=== PATIENT | male | born 1980 | race Two or more races ===

== ENCOUNTER 2017-11-09 23:30 | Emergency (ER) | payer OTHER ==
[2017-11-09 23:52] VITALS: PULSE 74; TEMP 98.2; BMI 30.1
[2017-11-09 23:53] VITALS: BP 137/82
[2017-11-10] MEDS ORDERED: IBUPROFEN 400 MG TABLET (FP) PO ONE ×2 (01:04→01:38)
--- NOTE | 2017-11-10 01:04 | PDOC ---
History of Present Illness - General History Source: Patient, Old Records Exam Limitations: No Limitations - History of Present Illness Initial Comments: 11/10/17 01:16 The patient is a 37 year old male with no significant past medical history who presents to the ED today with left sided pain since yesterday. The patient states that he tackled while playing football and landed on his right side. The patient states that his pain is mostly concentrated just inferiorly to his axilla. He denies attempting to treat his pain at home. <Mauro Parks - Last Filed: 11/10/17 01:17> - General History Source: Patient <[email or web address] rowe - Last Filed: 11/10/17 02:16> - General Chief Complaint: Pain Stated Complaint: PAIN Time Seen by Provider: 11/10/17 01:01 Past History <Mauro Parks - Last Filed: 11/10/17 01:17> - Surgical History Abdominal Surgery: Yes (HERNIA) - Suicide/Smoking/Psychosocial Hx Smoking History: Never smoked Have you smoked in the past 12 months: No Information on smoking cessation initiated: No Hx Alcohol Use: No Drug/Substance Use Hx: No Substance Use Type: None <Dashawn Eli - Last Filed: 11/10/17 02:16> - Past Medical History Allergies/Adverse Reactions: Allergies Allergy/AdvReac Type Severity Reaction Status Date / Time No Known Allergies Allergy Verified 06/30/16 12:52 Home Medications: Ambulatory Orders Ibuprofen 800 mg PO TID #30 tablet 11/10/17 Methocarbamol [Robaxin -] 500 mg PO TID #30 tablet 11/10/17 Review of Systems - Review of Systems Able to Perform ROS?: Yes Comments:: 11/10/17 01:16 CONSTITUTIONAL: Absent: fever, no chills, no fatigue EYES: Absent: visual changes ENT: Absent: ear pain, no sore throat CARDIOVASCULAR: Absent: chest pain, no palpitations RESPIRATORY: Absent: cough, no SOB GI: Absent: abdominal pain, no nausea, no vomiting, no constipation, no diarrhea GENITOURINARY: Absent: dysuria, no frequency, no hematuria MUSCULOSKELETAL: (+) Left axilla pain Absent: back pain, no arthralgia, no myalgia SKIN: Absent: rash <Mauro Parks - Last Filed: 11/10/17 01:17> *Physical Exam - Vital Signs Last Vital Signs Temp Pulse Resp BP Pulse Ox 98.2 F 74 18 137/82 98 11/09/17 23:50 11/09/17 23:50 11/09/17 23:50 11/09/17 23:50 11/09/17 23:50 - Physical Exam Comments: 11/10/17 01:16 GENERAL: Well-appearing, well-nourished. No apparent distress. HEENT: Normocephalic, atraumatic. PERRL, EOM intact. CARDIOVASCULAR: Normal S1, S2. Regular rate and rhythm. PULMONARY: Clear to auscultation bilaterally. ABDOMEN: Soft, non-distended, non-tender. EXTREMITIES: Normal ROM in all four extremities. No gross deformities. No crepitus SKIN: Warm, dry. No rash NEUROLOGICAL: No focal neurological deficits. <Mauro Parks - Last Filed: 11/10/17 01:17> - Vital Signs Last Vital Signs Temp Pulse Resp BP Pulse Ox 98.2 F 74 18 137/82 98 11/09/17 23:50 11/09/17 23:50 11/09/17 23:50 11/09/17 23:50 11/09/17 23:50 <Dashawn Eli - Last Filed: 11/10/17 02:16> Medical Decision Making - Medical Decision Making 11/10/17 01:33 Dr. Eli: The scribe's documentation has been prepared under my direction and personally reviewed by me in its entirery. I confirm that the note above accurately reflects all work, treatment, procedures, and medical decision making performed by me. <Dashawn Eli - Last Filed: 11/10/17 02:16> *DC/Admit/Observation/Transfer - Attestations Scribe Attestion: 11/10/17 01:17 Documentation prepared by Mauro Parks, acting as medical biller/coder for Dashawn Eli DO. <Mauro Parks - Last Filed: 11/10/17 01:17> - Discharge Dispostion Admit: No <Dashawn Eli - Last Filed: 11/10/17 02:16> Diagnosis at time of Disposition: Contusion of rib on left side - Discharge Dispostion Disposition: HOME Condition at time of disposition: Stable - Prescriptions Prescriptions: Ibuprofen 800 mg PO TID #30 tablet Methocarbamol [Robaxin -] 500 mg PO TID #30 tablet - Referrals Referrals: Enrique Shaffer MD [Primary Care Provider] - - Patient Instructions Printed Discharge Instructions: DI for Rib Contusion - Post Discharge Activity Forms/Work/School Notes: Back to Work
[2017-11-10] MEDS ORDERED: METHOCARBAMOL 500 MG TABLET PO ONE (01:30)
[2017-11-10] MEDS ORDERED: METHOCARBAMOL 500 MG TABLET ONE (01:38)
== END 2017-11-10 02:32 | disposition home or self-care (01) ==
LOC: JER 23:30
DX: S20.212A Contusion of left front wall of thorax, initial encounter (principal); W50.0XXA Accidental hit or strike by another person, initial encounter; Y93.61 Activity, american tackle football; Y92.9 Unspecified place or not applicable
CPT/HCPCS: 71101-TC-FY; 99282-25

== ENCOUNTER 2017-11-27 19:52 | Emergency (ER) | payer OTHER ==
[2017-11-27 19:59] VITALS: BP 119/80; PULSE 72; TEMP 98.2; BMI 30.1
--- NOTE | 2017-11-27 20:03 | PDOC ---
History of Present Illness - General Chief Complaint: Back Pain Stated Complaint: PAIN, ACUTE Time Seen by Provider: 11/27/17 20:01 History Source: Patient - History of Present Illness Pain Location: reports: back Method of Injury: Yes: fall Past History - Past Medical History Allergies/Adverse Reactions: Allergies Allergy/AdvReac Type Severity Reaction Status Date / Time No Known Allergies Allergy Verified 11/27/17 19:59 Home Medications: Ambulatory Orders Ibuprofen [Motrin -] 2 tab PO Q6H #30 tablet 11/27/17 Tramadol HCl 50 mg PO Q6H #15 tablet MDD 200mg 11/27/17 COPD: No Other medical history: DENIES - Surgical History Abdominal Surgery: Yes (HERNIA) - Suicide/Smoking/Psychosocial Hx Smoking History: Never smoked Have you smoked in the past 12 months: No Hx Alcohol Use: No Drug/Substance Use Hx: No Substance Use Type: None Review of Systems - Review of Systems Respiratory: No: Shortness of Breath Cardiac (ROS): No: Chest Pain Musculoskeletal: Yes: Back Pain Neurological: No: Numbness, Tingling, Weakness *Physical Exam - Vital Signs Last Vital Signs Temp Pulse Resp BP Pulse Ox 98.2 F 72 18 119/80 100 11/27/17 19:57 11/27/17 19:57 11/27/17 19:57 11/27/17 19:57 11/27/17 19:57 - Physical Exam General Appearance: Yes: Appropriately Dressed. No: Apparent Distress HEENT: positive: Normal Voice Neck: positive: Supple. negative: Tender, Decreased range of motion Respiratory/Chest: positive: Lungs Clear, Normal Breath Sounds, Other (no crepitus or step offs). negative: Chest Tender, Respiratory Distress Cardiovascular: positive: Regular Rate, S1, S2 Gastrointestinal/Abdominal: positive: Soft. negative: Tender Musculoskeletal: positive: Normal Inspection. negative: Vertebral Tenderness Extremity: positive: Normal Inspection Integumentary: positive: Dry, Warm Neurologic: positive: Fully Oriented, Alert, Normal Mood/Affect Medical Decision Making - Medical Decision Making 11/27/17 20:10 37-year-old male, no significant history, here with severe back pain after slipping on wet floor at gym and falling onto back yesterday. States pain has worsened and worse with cough, sneezing or deep inspiration. No shortness of breath, chest pain, palpitations. Denies any other injuries at this time. Took Motrin earlier today with no relief. See exam R/o rib fx -pain control -CXR/rib series 11/27/17 20:42 XR negative for obvious rib fracture or pneumo. Patient improved with Toradol. Will dc w/ pain control. Reasons to return d/w pt 11/27/17 20:49 *DC/Admit/Observation/Transfer Diagnosis at time of Disposition: Back sprain - Discharge Dispostion Disposition: HOME Condition at time of disposition: Improved - Prescriptions Prescriptions: Ibuprofen [Motrin -] 2 tab PO Q6H #30 tablet Tramadol HCl 50 mg PO Q6H #15 tablet MDD 200mg - Referrals - Patient Instructions Printed Discharge Instructions: DI for Back Strain or Sprain Additional Instructions: Your xrays were negative for fracture or any other serious injuries at this time. You most likely suffered a back sprain. Please take Motrin as needed for pain. If Motrin does not help, take tramadol but tramadol can make you drowsy, so only take while home and do not take while driving. Return to ER for any worsening of symptoms. If there is any change to x-ray read, we will contact you - Post Discharge Activity Forms/Work/School Notes: Back to Work
[2017-11-27] MEDS ORDERED: KETOROLAC TROMETHAMINE 60 MG/2 ML VIAL IM ONE (20:09)
[2017-11-27] MEDS ORDERED: KETOROLAC TROMETHAMINE 60 MG/2 ML VIAL ONE (20:09)
[2017-11-27] MEDS ORDERED: traMADol HCL 50 MG TABLET PO ONE (20:48)
[2017-11-27] MEDS ORDERED: traMADol HCL 50 MG TABLET ONE (20:48)
== END 2017-11-27 20:49 | disposition home or self-care (01) ==
LOC: JERFT 19:52
PROC: 3E0233Z Introduction of Anti-inflammatory into Muscle, Percutaneous Approach (ICD-10-PCS; principal; 2017-11-27)
DX: S29.012A Strain of muscle and tendon of back wall of thorax, initial encounter (principal); S39.012A Strain of muscle, fascia and tendon of lower back, initial encounter; S33.5XXA Sprain of ligaments of lumbar spine, initial encounter; W01.0XXA Fall on same level from slipping, tripping and stumbling without subsequent striking against object, initial encounter; Y93.89 Activity, other specified; Y92.39 Other specified sports and athletic area as the place of occurrence of the external cause; Y99.8 Other external cause status
CPT/HCPCS: 71046-TC-FY; 71111-TC-FY; 96372; 99281-25

== ENCOUNTER 2019-06-14 02:21 | Emergency (ER) | payer OTHER ==
--- NOTE | 2019-06-14 02:53 | PDOC ---
History of Present Illness - General Chief Complaint: Cold Symptoms Stated Complaint: DIFFICULTY BREATHING Time Seen by Provider: 06/14/19 02:45 - History of Present Illness Initial Comments: 06/14/19 03:24 38 yo M no PMH presenting with cough. Patient reports that the cough has been there for the past year, but has been particularly bad for the past couple of days. Reports being very concerned about black mold that is in his house. States that he is coughing so much that his chest is hurting, also associated with headaches and SOB. Complains that he tastes blood when he coughs. Specifically denies CP, constipation/diarrhea, fevers/chills, N/V. Endorses cough, KIM, and chest wall pain. Past History - Past Medical History Allergies/Adverse Reactions: Allergies Allergy/AdvReac Type Severity Reaction Status Date / Time No Known Allergies Allergy Verified 11/27/17 19:59 Home Medications: Ambulatory Orders Ibuprofen [Motrin -] 2 tab PO Q6H #30 tablet 11/27/17 Tramadol HCl 50 mg PO Q6H #15 tablet MDD 200mg 11/27/17 Albuterol Sulfate Inhaler - [Ventolin HFA Inhaler -] 1 puff IH TID PRN #1 inhaler 06/14/19 Methylprednisolone [Medrol Dose Codey] 4 mg PO ASDIR #21 tablet 06/14/19 COPD: No - Surgical History Abdominal Surgery: Yes (HERNIA) - Psycho Social/Smoking Cessation Hx Smoking History: Never smoked Have you smoked in the past 12 months: No Hx Alcohol Use: No Drug/Substance Use Hx: No Substance Use Type: None Review of Systems - Review of Systems Comments:: 06/14/19 03:27 GENERAL/CONSTITUTIONAL: No fever or chills. No weakness. HEAD, EYES, EARS, NOSE AND THROAT: No change in vision. No ear pain or discharge. No sore throat. CARDIOVASCULAR: No chest pain. Complains of shortness of breath. RESPIRATORY: Nonproductive cough. No wheezing or hemoptysis. GASTROINTESTINAL: No nausea, vomiting, diarrhea or constipation. GENITOURINARY: No dysuria, frequency, or change in urination. MUSCULOSKELETAL: No joint or muscle swelling or pain. No neck or back pain. Chest wall pain. SKIN: No rash NEUROLOGIC: No headache, vertigo, loss of consciousness, or change in strength/ sensation. ENDOCRINE: No increased thirst. No abnormal weight change. HEMATOLOGIC/LYMPHATIC: No anemia, easy bleeding, or history of blood clots. ALLERGIC/IMMUNOLOGIC: No hives or skin allergy *Physical Exam - Physical Exam 06/14/19 03:29 Gen: well-developed, well-nourished, NAD Neuro: AAOX4, CN II-XII intact, FTN intact, EOMI, PERRLA, 5/5 strength, SILT HEENT: atraumatic, normocephalic, dry mucous membranes Neck: trachea midline, supple CV: regular rate, regular rhythm, no murmurs, rubs, or gallops Pulm: CTA b/l, no wheezing Abd: soft, non-distended, non-tender MSK: full ROM, intact pulses Extr: no edema, no deformities Skin: warm, dry Medical Decision Making - Medical Decision Making 06/14/19 03:29 38 yo M no PMH with cough for the past year. - CT PA + L - Duoneb - likely dc with Medrol dose pack and inhaler 06/14/19 04:04 CXR unchanged from prior, no signs of acute pathology. Discharge - Discharge Information Problems reviewed: Yes Clinical Impression/Diagnosis: Cough Condition: Improved Disposition: HOME - Admission No - Additional Discharge Information Prescriptions: Albuterol Sulfate Inhaler - [Ventolin HFA Inhaler -] 1 puff IH TID PRN #1 inhaler PRN Reason: Shortness Of Breath Methylprednisolone [Medrol Dose Codey] 4 mg PO ASDIR #21 tablet - Follow up/Referral - Patient Discharge Instructions Patient Printed Discharge Instructions: DI for Cough -- Adult Additional Instructions: You were seen with a cough. Your chest X ray did not show any abnormalities, and your symptoms improved with treatment. Please take your Medrol dose pack as prescribed. Also take your inhaler as needed for shortness of breath. Follow up with your primary care doctor within one week. Return to the ED if you develop worsening symptoms. - Post Discharge Activity
--- NOTE | 2019-06-14 02:55 | PDOC ---
Attending Attestation - Resident Resident Name: Frank Almanzar - ED Attending Attestation I have performed the following: I have examined & evaluated the patient, The case was reviewed & discussed with the resident, I agree w/resident's findings & plan - HPI HPI: 06/14/19 03:36 see resident hpi - Physicial Exam PE: 06/14/19 03:36 agree with resident exam - Medical Decision Making 06/14/19 03:36 38 yo male with chronic cough plan for cxr, sharron will d/c on medrol dosepak and i woth OP pulmonary follow up
[2019-06-14 02:57] VITALS: BP 134/87; PULSE 77; TEMP 98.3; BMI 33.8
[2019-06-14] MEDS ORDERED: ALBUTEROL SO4 2.5/IPRATROPIUM 0.5 INH SOL 3 ML VIAL.NEB. NEB ONE ×2 (03:00→04:15)
== END 2019-06-14 04:30 | disposition home or self-care (01) ==
LOC: JER 02:21
PROC: 3E0F7GC Introduction of Other Therapeutic Substance into Respiratory Tract, Via Natural or Artificial Opening (ICD-10-PCS; principal; 2019-06-14)
DX: R05 Cough (principal); K46.9 Unspecified abdominal hernia without obstruction or gangrene
CPT/HCPCS: 71046-TC-FY; 99282-25

== ENCOUNTER 2020-10-25 21:39 | Emergency (ER) | payer OTHER ==
[2020-10-25 21:49] VITALS: BP 154/84; PULSE 102; TEMP 98.7; BMI 33.5
[2020-10-25 23:01] LABS: BASO % 0.5 % (0-2.0); EOS % 1.8 % (0-4.5); HEMATOCRIT 45.7 % (35.4-49); HEMOGLOBIN 15.7 GM/dL (11.7-16.9); LYMPH % 29.5 % (8-40); MCH 31.6 pg (25.7-33.7); MCHC 34.4 g/dl (32.0-35.9); MEAN CELL VOLUME 91.9 fl (80-96); MEAN PLT VOLUME 8.2 fl (7.5-11.1); MONO % 8.5 % (3.8-10.2); NEUT % 59.7 % (42.8-82.8); PLATELET COUNT 243 K/MM3 (134-434); RBC 4.98 M/mm3 (4.00-5.60); RDW 12.7 % (11.9-15.9)
[2020-10-25 23:20] LABS: CHLORIDE 105 mmol/L (98-107); SODIUM 141 mmol/L (136-145)
[2020-10-25 23:22] LABS: ALBUMIN 4.4 g/dl (3.4-5.0); CALCIUM 9.9 mg/dL (8.5-10.1)
[2020-10-25 23:23] LABS: ANION GAP 6 MMOL/L (8-16); BLOOD UREA NITROGEN 11.9 mg/dL (7-18); CO2 30 mmol/L (21-32); GLUCOSE,RANDOM 71 mg/dL (74-106); MAGNESIUM 2.1 mg/dL (1.8-2.4)
[2020-10-25 23:25] LABS: SGPT/ALT 33 U/L (13-61)
[2020-10-25 23:26] LABS: CREATININE 1.2 mg/dL (0.55-1.3); PHOSPHOROUS 3.3 mg/dL (2.5-4.9); SGOT/AST 23 U/L (15-37)
[2020-10-25 23:27] LABS: BILIRUBIN,TOTAL 0.8 mg/dL (0.2-1)
[2020-10-25 23:28] LABS: ALK PHOS 89 U/L (45-117)
== END 2020-10-26 00:17 | disposition home or self-care (01) ==
LOC: JER 21:39
DX: R00.2 Palpitations (principal); R07.9 Chest pain, unspecified; R20.2 Paresthesia of skin
CPT/HCPCS: 36415; 71046-TC-FY; 80053; 83735; 84100; 84443; 84484; 85025; 93005; 93010; 99285-25

== ENCOUNTER 2021-06-23 05:49 | Emergency (ER) | payer OTHER ==
[2021-06-23] MEDS ORDERED: ALBUTEROL SO4 2.5/IPRATROPIUM 0.5 INH SOL 3 ML VIAL.NEB. NEB ONE ×2 (06:08→06:23)
[2021-06-23 06:24] VITALS: BP 136/92; PULSE 67; TEMP 97.6; BMI 31.5
[2021-06-23] MEDS ORDERED: DEXAMETHASONE LIQUID 0.5 MG/5 ML PO ONE (07:36)
[2021-06-23 08:40] LABS: BASO % 0.7 % (0-2.0); EOS % 4.7 % (0-4.5); HEMATOCRIT 43.3 % (35.4-49); LYMPH % 32.7 % (8-40); MCH 31.8 pg (25.7-33.7); MCHC 34.6 g/dl (32.0-35.9); MEAN CELL VOLUME 91.9 fl (80-96); MEAN PLT VOLUME 8.4 fl (7.5-11.1); MONO % 9.2 % (3.8-10.2); NEUT % 52.7 % (42.8-82.8); PLATELET COUNT 208 10^3/uL (134-434); RBC 4.71 M/mm3 (4.00-5.60); RDW 12.5 % (11.9-15.9); WHITE BLOOD COUNT 7.8 K/mm3 (4.0-10.0)
[2021-06-23] MEDS ORDERED: DEXAMETHASONE 4 MG TABLET (FP) ONE (09:01)
[2021-06-23] MEDS ORDERED: DEXAMETHASONE SOD PHOSPHATE 10 MG/1 ML VIAL ONE (09:04)
== END 2021-06-23 10:11 | disposition home or self-care (01) ==
LOC: JER 05:49
PROC: 3E0F7GC Introduction of Other Therapeutic Substance into Respiratory Tract, Via Natural or Artificial Opening (ICD-10-PCS; principal; 2021-06-23)
DX: R05.9 Cough, unspecified (principal)
CPT/HCPCS: 36415; 71046-TC-FY; 84484; 85025; 85027; 93005; 93010; 99285-25; C9803; U0003; U0005

== ENCOUNTER 2022-01-24 17:39 | Emergency (ER) | payer OTHER ==
[2022-01-24 18:12] VITALS: BP 125/80; PULSE 59; TEMP 98.5; BMI 31.5
== END 2022-01-24 19:56 | disposition home or self-care (01) ==
LOC: JERFT 17:39
DX: S92.354A Nondisplaced fracture of fifth metatarsal bone, right foot, initial encounter for closed fracture (principal)
CPT/HCPCS: 73610-TC-RT-FY; 73630-TC-RT-FY; 99284-25

== ENCOUNTER 2024-11-10 23:08 | Emergency (ER) | payer OTHER ==
[2024-11-10 23:15] VITALS: BP 138/85; PULSE 60; RESP 20; TEMP 98.2; BMI 33.0
[2024-11-11] MEDS ORDERED: IBUPROFEN 400 MG TABLET (FP) PO ONE (00:13)
[2024-11-11] MEDS ORDERED: LIDOCAINE 4% PATCH TP ONE (00:14)
[2024-11-11] MEDS: LIDOCAINE 4% PATCH TP ONE (00:16)
[2024-11-11] MEDS: IBUPROFEN 400 MG TABLET (FP) PO ONE (00:16)
[2024-11-11] MEDS ORDERED: LIDOCAINE PATCH REMOVAL MC ONE (12:00)
== END 2024-11-11 00:47 | disposition home or self-care (01) ==
LOC: JER 23:08
DX: R07.81 Pleurodynia (principal)
CPT/HCPCS: 71046-TC-FY; 99283-25